=== PATIENT | male | born 1955 ===

== ENCOUNTER 2021-02-28 10:02 | Day surgery (SDC) | payer OTHER, SELFPAY ==
[~2021-02-28] VITALS: Ht 160 cm; Wt 69.4 kg
[2021-02-28] MEDS ORDERED: fentaNYL citrate 0.05 MG/ML VIAL ONE (12:39)
[2021-02-28] MEDS ORDERED: LIDOCAINE 2% 100 MG/5 ML UJET TP ONE ×2 (12:40→13:00)
[2021-02-28] MEDS ORDERED: fentaNYL citrate 0.05 MG/ML VIAL IVP ONE (13:05)
== END 2021-02-28 13:33 | disposition home or self-care (01) ==
LOC: MDS 10:02 → MMU 10:03 → MDS 13:33
PROVIDERS: ATTEND Internal Medicine Gastroenterology
DX: Z12.11 Encounter for screening for malignant neoplasm of colon (principal); D12.2 Benign neoplasm of ascending colon; D12.4 Benign neoplasm of descending colon; Z80.0 Family history of malignant neoplasm of digestive organs; I10 Essential (primary) hypertension; Z20.822 Contact with and (suspected) exposure to COVID-19; Z79.899 Other long term (current) drug therapy
CPT/HCPCS: J3010